=== PATIENT | male | born 1990 | race Caucasian/White ===

== ENCOUNTER 2017-03-13 16:30 | Inpatient (IN) | payer SELFPAY ==
[~2017-03-13] VITALS: Ht 188 cm; Wt 105.7 kg
[2017-03-13] VITALS (7 sets, daily range): BP systolic 105–116; BP diastolic 41–70
--- NOTE | 2017-03-13 16:32 | NUR ---
PT BIB GIRLFRIEND TO ER BED 14. PT IS C/O HEROIN WIDRAWAL, GENERALIZED WEAKNESS AND TREMORS. STATES LAST HEROIN USE WAS 3 DAYS AGO. GOWNED AND PLACED ON MONITOR. TACHY AND HYPERTENSIVE. AWAITING MD JOSEPH.
--- NOTE | 2017-03-13 16:50 | NUR ---
DR HARPER AT BEDSIDE FOR EVAL.
[2017-03-13] MEDS ORDERED: IV NS 0.9% 1,000 ML BAG IV ONE (17:00)
[2017-03-13] MEDS ORDERED: ONDANSETRON HCL/PF 4 MG/2 ML VIAL IVP ONE (17:00)
[2017-03-13] MEDS ORDERED: LORAZEPAM INJ 2 MG/ML VIAL IV ONE (17:00)
--- NOTE | 2017-03-13 17:03 | NUR ---
SIGNAL WIRER AT BEDSIDE FOR BLOOD DRAW.
--- NOTE | 2017-03-13 17:03 | NUR ---
Cristhian mei in ED - 03/13/17 at 1759 by JABIER BLOCK MAKING MACHINE OPERATOR AT BEDSIDE FOR CHEST XRAY.
[2017-03-13 17:11] LABS: HEMATOCRIT 35 % (39-51); HEMOGLOBIN 12.3 g/dL (13.5-17.5); MEAN CORPUSCULAR HEMOGLOBIN 27 PG (26.0-33.0); MEAN CORPUSCULAR HGB CONC 36 g/dl (31.0-36.0); MEAN CORPUSCULAR VOLUME 75 fL (80-96); RDW COEFFICIENT OF VARIATION 14.5 (11.5-15.0); RED BLOOD CELL COUNT(AUTO) 4.61 MIL/uL (4.5-6.0)
[2017-03-13] MEDS ORDERED: ONDANSETRON HCL/PF 4 MG/2 ML VIAL ONE (17:17)
[2017-03-13] MEDS ORDERED: LORAZEPAM INJ 2 MG/ML VIAL ONE (17:17)
[2017-03-13 17:29] LABS: ALBUMIN 1.6 g/dL (3.4-5.0); BILIRUBIN,DIRECT 5.4 mg/dL (0.0-0.2); BILIRUBIN,TOTAL 6.4 mg/dL (0.2-1.0); CALCIUM, SERUM 8.1 mg/dL (8.5-10.1); CREATININE 2.4 mg/dL (0.6-1.3); POTASSIUM 3.8 mmol/L (3.5-5.1); TOTAL PROTEIN, SERUM 6.8 g/dL (6.4-8.2)
[2017-03-13 17:38] LABS: INR 1.48 (0.87-1.13); PROTHROMBIN TIME 15.4 SECS (9.5-12.7)
[2017-03-13 17:45] LABS: WHITE BLOOD COUNT (AUTO) 45.2 K/uL (4.3-11.0)
--- NOTE | 2017-03-13 17:58 | NUR ---
RADIOLOGY AT BEDSIDE FOR CHEST XRAY.
[2017-03-13] MEDS ORDERED: IV NS 0.9% 250 ML IV ONE (18:00)
[2017-03-13] MEDS ORDERED: PIPERACILLIN /TAZOBACTAM 3.375 G in IV D5W 50 ML IV ONE (18:00)
[2017-03-13] MEDS ORDERED: IV NS 0.9% 1,000 ML IV ONE ×2 (18:00)
[2017-03-13] MEDS ORDERED: VANCOMYCIN 1 GM in IV D5W 250 ML IV ONE (18:00)
[2017-03-13] MEDS ORDERED: IBUPROFEN 200 MG TABLET ONE (18:13)
[2017-03-13] MEDS ORDERED: IBUPROFEN 400 MG TABLET PO ONE (18:30)
[2017-03-13 18:56] LABS: BAND % (MANUAL) 12 % (0.0-5.0); LYMPHOCYTES % (MANUAL) 4 % (16-48); MONOCYTES % (MANUAL) 12 % (0-11.0); NEUTROPHILS % (MANUAL) 72 (42-76)
[2017-03-13 19:12] LABS: APPEARANCE,URINE Slightly Cloudy (CLEAR); BILIRUBIN,URINE MODERATE (NEGATIVE); BLOOD, URINE Moderate Ery/uL (NEGATIVE); COLOR,URINE Dark (YELLOW); KETONES,URINE Negative (NEGATIVE); LEUKOCYTE ESTERASE ,URINE Negative (NEGATIVE); NITRITE, URINE Negative (NEGATIVE); PH,URINE 5.5 (5.0-8.0); PROTEIN,URINE 30 mg/dl (NEGATIVE); UGLUCOSE Negative (NEGATIVE)
[2017-03-13 19:37] LABS: BACTERIA,URINE Few /HPF (None Seen); WBC,URINE 0-2 /HPF (0-3)
[2017-03-13 19:38] LABS: SQUAMOUS EPITHELIAL CELL,UR Few /HPF (None Seen)
[2017-03-13] MEDS ORDERED: ONDANSETRON HCL/PF 4 MG/2 ML VIAL IVP PRN (20:00)
[2017-03-13] MEDS ORDERED: ZOLPIDEM TARTRATE 5 MG TABLET PO PRN (20:00)
[2017-03-13] MEDS ORDERED: Z GUARD REMEDY 2 OZ OINT TP PRN (20:00)
[2017-03-13] MEDS ORDERED: ENOXAPARIN SODIUM 40 MG/0.4 ML DISP.SYRIN SQ SCH (20:00)
[2017-03-13] MEDS ORDERED: HYDROCODONE/APAP 5/325MG 1 EACH TABLET PO PRN (20:00)
--- NOTE | 2017-03-13 20:31 | NUR ---
REPORT CALLED TO HORACE. PT TRANSFERED TO ICU. CONDITION: GUARDED
[2017-03-13] MEDS ORDERED: ENOXAPARIN SODIUM 40 MG/0.4 ML DISP.SYRIN SQ ONE (20:36)
--- NOTE | 2017-03-13 21:00 | NUR ---
received pt from ER, s/p drug overdose, lethargic, follows simple commands, ST, on 10L simple mask, sat 92%, diaper on, v/s stable, no pain, pt cleaned and changed, vanco, Zosyn given in ER.
[2017-03-13 21:04] LABS: ABG BASE EXCESS -2.2 mmol/L; ABG OXYGEN SATURATION 93.1 % (92.0-98.5); ABG PCO2 27.8 mmHg (35.0-45.0); ABG PH 7.481 (7.350-7.450); ABG PO2 69.7 mmHg (75.0-100.0); AaDO2 212.3 mmHg; COHb 0.6 % (0.5-1.5); MetHb 0.2 % (0.0-1.5); O2Hb 92.4 % (94.0-97.0); SITE, ABG Right Radial; VENT MODE, BG SM
[2017-03-13] MEDS: IV NS 0.9% 1,000 ML IV PRN (22:04)
[2017-03-13] MEDS ORDERED: PIPERACILLIN /TAZOBACTAM 2.25 G VIAL IV ONE (22:54)
[2017-03-13] MEDS: PIPERACILLIN /TAZOBACTAM 2.25 G in IV D5W 50 ML IV SCH (23:23)
[2017-03-14] VITALS (40 sets, daily range): BP systolic 87–167; BP diastolic 45–98
--- NOTE | 2017-03-14 | NUR ---
pt is resting in the bed, lethargic, follows simple commands, ABGs normal, ST, on simple mask at 10L, sat 93%, lungs congested, no edema, BL legs cellulitis, f/c inserted, DELMER new midline, v/s stable, no pain, pt turned and repositioned q2hrs.
[2017-03-14] MEDS ORDERED: PIPERACILLIN /TAZOBACTAM 2.25 G VIAL IV ONE (04:38)
--- NOTE | 2017-03-14 04:43 | NUR ---
pt is resting in the bed, lethargic, ST, on non rebreather mask at 15L, sat well, v/s stable, no pain, pt cleaned, changed and repositioned q2hrs.
[2017-03-14] MEDS: PIPERACILLIN /TAZOBACTAM 2.25 G in IV D5W 50 ML IV SCH (05:02)
[2017-03-14 05:44] LABS: HEMATOCRIT 31 % (39-51); HEMOGLOBIN 10.3 g/dL (13.5-17.5); MEAN CORPUSCULAR HEMOGLOBIN 26 PG (26.0-33.0); MEAN CORPUSCULAR HGB CONC 34 g/dl (31.0-36.0); MEAN CORPUSCULAR VOLUME 78 fL (80-96); RDW COEFFICIENT OF VARIATION 15.7 (11.5-15.0); RED BLOOD CELL COUNT(AUTO) 3.92 MIL/uL (4.5-6.0)
[2017-03-14 05:46] LABS: ALANINE AMINOTRANSFERASE 63 U/L (12-78); ALKALINE PHOSPHATASE 224 U/L (46-116); ASPARTATE AMINOTRANSFERASE 75 U/L (15-37); BILIRUBIN,TOTAL 5.2 mg/dL (0.2-1.0); CALCIUM, SERUM 7.8 mg/dL (8.5-10.1); CARBON DIOXIDE 26 mmol/L (21-32); CHLORIDE 99 mmol/L (98-107); GLUCOSE 138 mg/dL (74-106); MAGNESIUM 2.4 mg/dL (1.8-2.4); PHOSPHORUS 4.5 mg/dL (2.5-4.9); POTASSIUM 2.9 mmol/L (3.5-5.1); SODIUM SERUM 135 mmol/L (136-145); TOTAL PROTEIN, SERUM 5.7 g/dL (6.4-8.2)
[2017-03-14 05:52] LABS: WHITE BLOOD COUNT (AUTO) 36.1 K/uL (4.3-11.0)
[2017-03-14 05:57] LABS: CHOLESTEROL 131 mg/dL (<200); HDL CHOLESTEROL < 10 mg/dL (40-60); LDL 42 mg/dL (0-99); PLATELET COUNT (AUTO) 17 /CMM (150-450); THYROID STIMULATING HORMONE 0.183 uIU/mL (0.358-3.74); TRIGLYCERIDES 392 mg/dL (30-150)
[2017-03-14 05:59] LABS: ALBUMIN 1.4 g/dL (3.4-5.0); UREA NITROGEN, BLOOD 84 mg/dL (7-18)
--- NOTE | 2017-03-14 06:38 | NUR ---
platelets 17 and SBP 160-170 Dr Mosley notified, no orders.
--- NOTE | 2017-03-14 07:10 | NUR ---
RN INITIAL NOTES RECEIVED PT AWAKE, A/OX1-2. ON NON-REBREATHER AT 15LPM. HOB ELEVATED. 02 SAT 90%. DENIES ANY PAIN. DELMER MIDLINE IN PLACE. ON NS AT 100ML/HR. FC IN PLACE. PT CLEAN AND DRY. PT COMFORTABLE. CALL LIGHT WITHIN REACH. WILL CLOSELY MONITOR.
[2017-03-14] MEDS ORDERED: FEE PK DOSING 1 MIN EA MC ONE (07:31)
[2017-03-14] MEDS: PANTOPRAZOLE 40 MG VIAL IV SCH (08:14)
[2017-03-14] MEDS: IV NS 0.9% 1,000 ML IV PRN ×2 (08:46→16:02)
[2017-03-14] MEDS: VANCOMYCIN 1 GM in IV D5W 250 ML IV SCH ×2 (09:27→21:31)
[2017-03-14] MEDS ORDERED: POTASSIUM CHLORIDE 20 MEQ TAB.PRT.SR PO ONE (09:30)
[2017-03-14] MEDS ORDERED: PROPOFOL 100 ML IV PRN (10:00)
[2017-03-14] MEDS ORDERED: POTASSIUM CHLORIDE 10 MEQ TABLET.SA PO ONE (10:00)
--- NOTE | 2017-03-14 10:00 | NUR ---
RT NOTE. PT. 26 Y OLD MALE IN ICU OD AND X3 RT AT THE BEDSIDE, ASSIST ER FOR INTUBATION ETT # 7.5 AT 25 CM LIPLINE. GOOD COLOR EXCHANGED NOTED. PLACED ON [facility]. VENT WITH NOTED SETTINGS, ALARMS ARE SET, VENT PLUGGED ON RED OUTLET. AND AMBU BAG REMAIN AT TH BEDSIDE. CONTINUE FOR CARE AND MONITORING Addendum: 03/14/17 at 1851 by LUIS SMITH RT Amended: Links added.
--- NOTE | 2017-03-14 10:00 | NUR ---
RN NOTES 0930 SEEN AND EXAMINED BY DR. BARRAGAN. AWARE OF H&P AND CURRENT MEDS. AWARE OF LAB VALUES: WBC 36.1, PLATELET 17, POTASSIUM 2.9, WITH REPLACEMENT ORDER. BUN 84, CREA 2.0. PT AWAKE, A/OX1 WITH CONFUSION. PT TACHYCARDIC, HR 130S AND TACHYPNEIC RR 40S. ON NON-REBREATHER AT 15LPM. PT TAKES OFF NON-REBREATHER FREQUENTLY, 02 SAT GOES DOWN TO 70S-80S. HOB ELEVATED. MD ORDER PT FOR INTUBATION. CALLED ER MD. WILL PREPARE PROPER EQUIPMENT. 0950 PT INTUBATED. ETT 7.5/25CM ON THE LIP. CONNECTED TO VENT. WILL CLOSELY MONITOR. OG PLACED ORDERED. BILATERAL WRIST RESTRAINTS ON. WILL MONITOR FOR ANY CIRCULATORY IMPAIRMENT. WILL START DIPRIVAN NEEDED. AWAITING FOR STAT CXR. WILL MONITOR.
[2017-03-14] MEDS ORDERED: SUCCINYLCHOLINE CHLORIDE 20 MG/ML VIAL IV ONE (11:24)
[2017-03-14] MEDS ORDERED: ETOMIDATE 2 MG/ML VIAL IV ONE (11:24)
[2017-03-14] MEDS: PIPERACILLIN /TAZOBACTAM 3.375 G in IV D5W 50 ML IV SCH ×2 (11:27→17:26)
[2017-03-14] MEDS: PROPOFOL 100 ML IV PRN ×6 (11:51→22:39)
[2017-03-14 12:11] LABS: ABG BASE EXCESS -7.4 mmol/L; ABG OXYGEN SATURATION 97.1 % (92.0-98.5); ABG PCO2 36.7 mmHg (35.0-45.0); ABG PH 7.311 (7.350-7.450); ABG PO2 115.7 mmHg (75.0-100.0); AaDO2 560.6 mmHg; COHb 0.3 % (0.5-1.5); MetHb 0.6 % (0.0-1.5); O2Hb 96.2 % (94.0-97.0); PEEP,BG 5 cm H2O; SITE, ABG Right Brachial; VT, ABG 600 mL
[2017-03-14 12:20] LABS: BAND % (MANUAL) 5 % (0.0-5.0); LYMPHOCYTES % (MANUAL) 4 % (16-48); NEUTROPHILS % (MANUAL) 90 (42-76)
--- NOTE | 2017-03-14 12:20 | NUR ---
RN NOTES ABG RESULT RELAYED TO DR. BARRAGAN. ORDERED CHANGE VENT SETTINGS TO PEEP +8 AND TITRATE FI02. WILL CLOSELY MONITOR.
[2017-03-14 12:21] LABS: MONOCYTES % (MANUAL) 1 % (0-11.0)
--- NOTE | 2017-03-14 14:00 | NUR ---
RN NOTES SEEN AND EXAMINED BY DR. GIFFORD. AWARE OF CURRENT LAB VALUES AND IMAGING STUDIES. MD ORDERED BMP AT 1500. POTASSIUM LEVEL 2.9, REPLACED WITH POTASSIUM 50MEQ. WILL NOTIFY MD WITH RESULT.
[2017-03-14] MEDS ORDERED: IV NS 0.9% 1,000 ML BAG IV STA (14:57)
--- NOTE | 2017-03-14 14:57 | NUR ---
RN NOTES DR. BARRAGAN IN THE UNIT. PT SBP ON LOW 90S. PT ON DIPRIVAN. ON NS AT 100ML/HR. PER MD, GIVE NS 500ML BOLUS X1. WILL MONITOR FOR EFFECTIVENESS
--- NOTE | 2017-03-14 15:39 | NUR ---
RN NOTES SEEN AND EXAMINED BY DR. CAN. AWARE OF LAB VALUES: WBC 36.1. AFEBRILE. ON IV ATB. HGB 10.3, HCT 31, POTASSIUM 2.9, REPLACED WITH POTASSIUM 50MEQ TOTAL. BMP RECHECK DONE AT 1500. AWAITING FOR RESULT. BUN 84, CREA 2.0. ON THE CASE. AWARE PT INTUBATED, ON VENT. NO RESPIRATORY DISTRESS NOTED. PT SEDATED, ON DIPRIVAN. MD ORDERED LABS IN AM. WILL MONITOR.
[2017-03-14 16:04] LABS: CALCIUM, SERUM 7.8 mg/dL (8.5-10.1); CREATININE 2.3 mg/dL (0.6-1.3); POTASSIUM 3.5 mmol/L (3.5-5.1)
[2017-03-14] MEDS ORDERED: NOREPINEPHRINE 16 MG in IV D5W 500 ML IV PRN (18:00)
[2017-03-14] MEDS: LEVOFLOXACIN 500 MG /D5W 100ML 500 MG in PREMIX 1 EA IV SCH (18:15)
--- NOTE | 2017-03-14 18:23 | NUR ---
RN CLOSING NOTES PT INTUBATED, ON VENT. NO RESPIRATORY DISTRESS NOTED. NO SOB NOTED. NO SIGNS OF PAIN NOTED. PT SEDATED, ON DIPRIVAN. TITRATED ACCORDINGLY. OG IN PLACE, CLAMPED. MIDLINE IN PLACE. TOLERATING IVF WELL. FC IN PLACE. NO HEMATURIA NOTED. KEPT CLEAN AND DRY. REPOSITIONED Q2. KEPT BLE ELEVATED. WILL ENDORSE FOR CONTINUITY OF CARE.
[2017-03-14] MEDS ORDERED: ENOXAPARIN SODIUM 40 MG/0.4 ML DISP.SYRIN SQ SCH (21:00)
--- NOTE | 2017-03-14 22:30 | NUR ---
agricultural engineering technologist. initial assessment. received the pt rest on the bed. orally intubated. sedated with diprivan. ETT 7.5,LIP 25CM,AC 12, TV 600,FIO2 80%, PEEP 8. SAT 95%. ANGULAR DEVELOPER SHOWING S TACH. IV LT UPPER ARM MID LINE, RT SHOULDER 20G,OGT CLAMPED. DIPRIVAN 75ML/H,NS 100ML/H, PAYTON SOFT WRIST RESTRAINT CHECKED AND RELEASED. NO INJURY OR REDNESS NOTED. HOB ELEVATED. NPO. AFEBRILE. FC PATENT. TURN AND REPOSITION Q2H. WILL CONTINUE TO MONITOR VITALS.
--- NOTE | 2017-03-14 23:16 | NUR ---
EMPLOYEE WELLNESS/FITNESS COORDINATOR. REPORT GIVEN TO LISETH PHIPPS.
--- NOTE | 2017-03-14 23:20 | NUR ---
FURNACE CARETAKER NOTE RECEIVED REPORT FROM MOISE WOOD. PATIENT IS INTUBATED, ETT 7.5, LIPLINE 25, ON MECH VENT AT AC 12, TV 600, FIO2 80%, PEEP 8. PATIENT IS TACHYPNEIC IN THE 30s. ST ON MONITOR IN THE 130s. BP STABLE. OGT CLAMPED. PATIENT SEDATED WITH DIPRIVAN AT 85 mcg/kg/min. IVF ORDERED OF NS AT 100cc/hr. DELMER MIDLINE AND R SHOULDER 20G INTACT AND PATENT. F/C INTACT AND DRAINING WITH CLOUDY, YELLOW URINE WITH SEDIMENTS. WITH BILATERAL SOFT WRIST RESTRAINTS IN PLACE, CHECKED FOR CIRCULATION AND SKIN INTEGRITY. REPOSITIONED FOR COMFORT AND SAFETY. ON CLOSE MONITORING.
[2017-03-15] VITALS (58 sets, daily range): BP systolic 81–122; BP diastolic 35–63
[2017-03-15] MEDS: PIPERACILLIN /TAZOBACTAM 3.375 G in IV D5W 50 ML IV SCH ×4 (00:37→17:13)
[2017-03-15] MEDS: PROPOFOL 100 ML IV PRN ×10 (00:46→21:09)
[2017-03-15] MEDS: IV NS 0.9% 1,000 ML IV PRN ×3 (05:10→18:10)
[2017-03-15 06:22] LABS: HEMATOCRIT 29 % (39-51); HEMOGLOBIN 9.7 g/dL (13.5-17.5); MEAN CORPUSCULAR HEMOGLOBIN 26 PG (26.0-33.0); MEAN CORPUSCULAR HGB CONC 33 g/dl (31.0-36.0); MEAN CORPUSCULAR VOLUME 78 fL (80-96); RDW COEFFICIENT OF VARIATION 16.5 (11.5-15.0); RED BLOOD CELL COUNT(AUTO) 3.75 MIL/uL (4.5-6.0)
[2017-03-15 06:26] LABS: PLATELET COUNT (AUTO) 19 /CMM (150-450); WHITE BLOOD COUNT (AUTO) 31.5 K/uL (4.3-11.0)
[2017-03-15 06:29] LABS: INR 1.14 (0.87-1.13); PROTHROMBIN TIME 11.9 SECS (9.5-12.7)
--- NOTE | 2017-03-15 06:31 | NUR ---
MOLDED GOODS CONTROLS OPERATOR NOTE RECEIVED CALL FROM LAB. PATIENT'S WBC IS 31.5 AND PLATELET 19. VALUES TRENDING. CN MADE AWARE. WILL ENDORSE ACCORDINGLY.
[2017-03-15 06:40] LABS: CALCIUM, SERUM 7.9 mg/dL (8.5-10.1); CREATININE 2.5 mg/dL (0.6-1.3); MAGNESIUM 2.7 mg/dL (1.8-2.4); PHOSPHORUS 4.5 mg/dL (2.5-4.9)
--- NOTE | 2017-03-15 06:45 | NUR ---
BASTING PULLER CLOSING NOTES PATIENT WITH NO DISTRESS OBSERVED OVERNIGHT. DIPRIVAN AT 85 mcg/kg/min, PATIENT IS SEDATED, MONITORED CLOSELY, VS STABLE AT THIS TIME. ETT IN PLACE. AIRWAY SUCTIONED NEEDED. REMAINS ST WITH HR OF 122. DELMER MIDLINE INTACT AND PATENT, IVF ORDERED. B SOFT WRIST RESTRAINTS IN PLACE AT ALL TIMES, CIRCULATION AND SKIN INTEGRITY ENSURED. OGT IN PLACE, CLAMPED. F/C INTACT AND DRAINING WITH CLOUDY, ADRIÁN COLORED URINE. PATIENT TURNED AND REPOSITIONED. SAFETY AND COMFORT ENSURED. WILL ENDORSE ACCORDINGLY FOR CONTINUITY OF CARE.
[2017-03-15 06:47] LABS: POTASSIUM 3.7 mmol/L (3.5-5.1)
--- NOTE | 2017-03-15 07:10 | NUR ---
RN INITIAL NOTES RECEIVED PT ETT IN PLACE. ON VENT. NO RESPIRATORY DISTRESS NOTED. HOB ELEVATED. NO SIGNS OF PAIN NOTED. OG IN PLACE, CLAMPED. DELMER MIDLINE IN PLACE. PT SEDATED. ON DIPRIVAN AT 85MCG/KG/MIN. WILL TITRATE ACCORDINGLY. ON NS AT 100ML/HR. FC IN PLACE. NO HEMATURIA NOTED. BILATERAL SOFT WRIST RESTRAINTS ON. NO CIRCULATORY IMPAIRMENT NOTED. PT FOR WEANING TRIALS TODAY. BLE ELEVATED. WILL MONITOR.
[2017-03-15] MEDS: VANCOMYCIN 1 GM in IV D5W 250 ML IV SCH (08:00)
[2017-03-15] MEDS: PANTOPRAZOLE 40 MG VIAL IV SCH (08:07)
--- NOTE | 2017-03-15 08:40 | NUR ---
RT PATIENT REC'D ORALLY INTUBATED ON [facility] VENT WITH SETTINGS SET BY . VENT ALARMS CHECKED + AUDIBLE. CUFF PRESSURE CHECKED CUT OFF MACHINE HELPER. SUCTIONED WITH MOD AMT PALE SEMITHICK SECRETIONS. B/S DIM. HALL BAG AT HOB. Addendum: 03/15/17 at 1302 by FATOUMATA JOHNSON RT Amended: Links added.
[2017-03-15] MEDS: LORAZEPAM INJ 2 MG/ML VIAL IV SCH ×3 (08:48→18:30)
--- NOTE | 2017-03-15 08:56 | NUR ---
RN NOTES VANCO DOSE FOR 0800 HELD. VANCO LEVEL 27. LUZ (PHARMACIST) AWARE.
--- NOTE | 2017-03-15 09:00 | NUR ---
RN NOTES 0845 PT ON SEDATION VACATION. PT ABLE TO OPEN EYES SPONTANEOUSLY. MOVES LEFT HAND. PLACED ON SIMV MODE ORDERED. WILL CLOSELY MONITOR 0855 PT TACHYPNEIC, RR 40-50S. UNCONTROLLED COUGHING NOTED. PT MOVES LEFT HAND, TRYING TO PULL OUT ETT. DR. BARRAGAN IN THE UNIT AWARE. PLACED BACK ON AC MODE. WILL CLOSELY MONITOR. Addendum: 03/15/17 at 0902 by INDIRA JOYCE RN WRONG PT DOCUMENTATION. PLS DISREGARD NOTE.
--- NOTE | 2017-03-15 09:05 | NUR ---
RN NOTES 0900 PT ON DIPRIVAN AT 60MCG/KG/MIN. DIPRIVAN TITRATING FOR SEDATION VACATION. ABG DRAWN, AWAITING FOR RESULT. SEEN AND EXAMINED BY DR. BARRAGAN. PT LOOKS AGITATED. PT TACHYCARDIC, HR 120S, PT TACHYPNEIC, RR 30S. WILL INCREASE DIPRIVAN ACCORDINGLY. WILL NOTIFY MD FOR ABG RESULT. WILL CLOSELY MONITOR.
[2017-03-15 09:26] LABS: ABG BASE EXCESS -6.8 mmol/L; ABG OXYGEN SATURATION 92.8 % (92.0-98.5); ABG PCO2 36.2 mmHg (35.0-45.0); ABG PH 7.324 (7.350-7.450); ABG PO2 72.5 mmHg (75.0-100.0); AaDO2 459.9 mmHg; COHb 0.2 % (0.5-1.5); MetHb 0.6 % (0.0-1.5); O2Hb 92.1 % (94.0-97.0); PEEP,BG 8 cm H2O; SITE, ABG Left Radial
--- NOTE | 2017-03-15 09:30 | NUR ---
RN NOTES SEEN AND EXAMINED BY DR GIFFORD. AWARE OF CURRENT LAB VALUES. NO ORDER MADE AT THIS TIME.
--- NOTE | 2017-03-15 11:15 | NUR ---
PER DR YUNG LIPSCOMB PEEP INCREASED TO 12 Addendum: 03/15/17 at 1303 by FATOUMATA JOHNSON RT Amended: Links added.
[2017-03-15 12:01] LABS: BAND % (MANUAL) 3 % (0.0-5.0); EOSINOPHILS % (MANUAL) 1 % (0-4); LYMPHOCYTES % (MANUAL) 8 % (16-48); MONOCYTES % (MANUAL) 3 % (0-11.0); NEUTROPHILS % (MANUAL) 85 (42-76)
--- NOTE | 2017-03-15 16:00 | NUR ---
RN NOTES SEEN AND EXAMINED BY SUMMER NORTON DNP. AWARE OF CURRENT LAB VALUES: WBC 31.5, HGB 9.7, CREA 29, PLATELET 19. NO SIGNS OF ACTIVE BLEEDING NOTED. BUN 93, CREA 2.5. ON IVF: NS AT 100ML/HR. AWARE OF CXR RESULT. PT REMAINS INTUBATED, TOLERATING VENT. PEEP CHANGED AFTER ABG RESULT. NO ORDER MADE AT THIS TIME.
[2017-03-15] MEDS: LACTOBACILLUS RHAMNOSUS GG 1 EACH CAP.SPRINK PO SCH (16:12)
--- NOTE | 2017-03-15 17:22 | NUR ---
RN NOTES CALLED SUMMER NORTON DNP REGARDING PT'S SBP BET 80-90S. PT HAS ORDER FOR LEVO TO KEEP SBP >90. PT NEEDS PICC LINE JUST IN CASE LEVO WILL BE STARTED. PT ON IVF: NS AT 100ML/HR. PT HAS DELMER MIDLINE. PER SUMMER, GIVE NS 1L BOLUS THEN RESUME NS AT 100ML/HR. WILL CLOSELY MONITOR BP.
[2017-03-15] MEDS: LEVOFLOXACIN 500 MG /D5W 100ML 500 MG in PREMIX 1 EA IV SCH (18:30)
--- NOTE | 2017-03-15 18:40 | NUR ---
RN CLOSING NOTES PT INTUBATED, ON VENT. NO SOB NOTED. NO SIGNS OF PAIN NOTED. PT SEDATED, ON DIPRIVAN. OG IN PLACE, CLAMPED. MIDLINE IN PLACE. GIVEN NS 1L BOLUSX1. SBP ON 90S. TOLERATING IVF WELL. BP CLOSELY MONITOR. FC IN PLACE. NO HEMATURIA NOTED. KEPT CLEAN AND DRY. REPOSITIONED Q2. KEPT BLE ELEVATED. WILL ENDORSE FOR CONTINUITY OF CARE.
--- NOTE | 2017-03-15 18:48 | NUR ---
RN NOTES CALLED SUMMER NORTON DNP REGARDING LATEST BP 87/44. GIVEN NS 1L BOLUS. RESUMES NS AT 100ML/HR. PT NEEDS PICC LINE INSERTION. AWAITING CALL BACK.
--- NOTE | 2017-03-15 19:16 | NUR ---
COLD MILL INSPECTOR. INITIAL ASSESSMENT. RECEIVED THE PT REST ON THE BED. ORALLY INTUBATED, ETT 7.5, LIP 25CMAC 12,TV 800, FIO2 80%, PEEP 12.SAT 94%. DETENTION WORKER SHOWING S TACH. PAYTON SOFT WRIST RESTRAINT CHECKED AND RELEASED. NO INJURY OR REDNESS NOTED. OGT INTACT. CLAMPED. IV RT SHOULDER 20G, LT UPPER ARM MID LINE. DIPRIVAN 50MCG/KG/MIN,NS 100ML/H,FC PATENT, HOB ELEVATED. TURN AND REPOSITION Q2H. WILL CONTINUE TO MONITOR VITALS.
--- NOTE | 2017-03-15 20:21 | NUR ---
PT RECEIVED INTUBATED WITH 7.5 ETT SECURED AT 25CM AT THE LIP. PT TOLERATING VENT SETTINGS. SX'D FOR SML AMT OF THICK PALE SECRETIONS. VENT ALARMS SET AND AUDIBLE. AMBU BAG AT BEDSIDE. VENT PLUGGED INTO RED OUTLET. WILL CONTINUE TO MONITOR. Addendum: 03/15/17 at 2023 by LY MARIANO RT Amended: Links added.
[2017-03-15] MEDS ORDERED: VANCOMYCIN 1 GM in IV D5W 250 ML IV SCH (21:00)
[2017-03-15 22:14] LABS: ABG OXYGEN SATURATION 82.8 % (92.0-98.5); ABG PCO2 42.1 mmHg (35.0-45.0); ABG PH 7.261 (7.350-7.450); ABG PO2 56.3 mmHg (75.0-100.0); AaDO2 469.9 mmHg; COHb 0.3 % (0.5-1.5); MetHb 0.8 % (0.0-1.5); O2Hb 81.9 % (94.0-97.0); PEEP,BG 12 cm H2O; SITE, ABG Left Radial
--- NOTE | 2017-03-15 22:45 | NUR ---
VANCOMYCIN LEVEL STILL PENDING.
--- NOTE | 2017-03-15 23:04 | NUR ---
SUMMER INTERNSHIP.SUMMER NORTON PLACED CENTRAL LINE . DURING PROCEDURE NO COMPLICATION NOTED. WILL CONTINUE TO MONITOR.
--- NOTE | 2017-03-15 23:47 | NUR ---
DIGITAL IMAGING TECHNICIAN. [facility] LEVEL 21. CALLED FRAMER RALPH SHE TOLD HOLD AND CHECK IN AM [facility].
[2017-03-16] VITALS (75 sets, daily range): BP systolic 65–115; BP diastolic 30–60
[2017-03-16] MEDS: PROPOFOL 100 ML IV PRN ×5 (00:03→11:26)
--- NOTE | 2017-03-16 00:09 | NUR ---
PEEP INCREASED TO [address] NORTON. RN NOTIFIED.
[2017-03-16] MEDS ORDERED: MIDAZOLAM HCL 100 MG in IV NS 0.9% 80 ML IV PRN (00:30)
[2017-03-16] MEDS ORDERED: FENTANYL CITRATE IV 1,250 MCG in IV NS 0.9% 225 ML IV PRN (00:30)
[2017-03-16] MEDS: PIPERACILLIN /TAZOBACTAM 3.375 G in IV D5W 50 ML IV SCH ×3 (00:40→12:07)
--- NOTE | 2017-03-16 00:49 | NUR ---
@0008 PEEP INCREASED TO [address] MONTALVO RN NOTIFIED. Addendum: 03/16/17 at 0049 by LY MARIANO RT Amended: Links added.
--- NOTE | 2017-03-16 00:59 | NUR ---
PEEP DECREASED BACK TO 12 DO TO LOW BP. RN NOTIFIED. Addendum: 03/16/17 at 0100 by LY MARIANO RT Amended: Links added.
--- NOTE | 2017-03-16 01:24 | NUR ---
HUMAN SERVICES CASE MANAGER. SUMMER ORDER STAT ABG. VENT SETTING CHANGED. RATE 20,PEEP 14. 30MINUTES LATER PT BLOOD PRESSURE AND HEART RATE WENT DOWN. LEVOPHED STARTED, PEEP CHANGED TO 12. WILL CONTINUE TO MONITOR. SUMMER MADE AWARE.
[2017-03-16] MEDS: LORAZEPAM INJ 2 MG/ML VIAL IV SCH ×3 (01:41→13:14)
[2017-03-16] MEDS ORDERED: IV NS 0.9% 250 ML IV PRN (02:30)
[2017-03-16] MEDS: IV NS 0.9% 1,000 ML IV PRN ×2 (03:54→16:44)
[2017-03-16 05:26] LABS: HEMATOCRIT 26 % (39-51); HEMOGLOBIN 9.2 g/dL (13.5-17.5); MEAN CORPUSCULAR HEMOGLOBIN 27 PG (26.0-33.0); MEAN CORPUSCULAR HGB CONC 35 g/dl (31.0-36.0); MEAN CORPUSCULAR VOLUME 77 fL (80-96); RDW COEFFICIENT OF VARIATION 16.4 (11.5-15.0); RED BLOOD CELL COUNT(AUTO) 3.42 MIL/uL (4.5-6.0)
[2017-03-16] MEDS ORDERED: PHENYLEPHRINE 10 MG/ML VIAL ONE (05:41)
[2017-03-16 05:46] LABS: CALCIUM, SERUM 7.7 mg/dL (8.5-10.1); MAGNESIUM 3.2 mg/dL (1.8-2.4); POTASSIUM 5.1 mmol/L (3.5-5.1)
[2017-03-16 05:47] LABS: PLATELET COUNT (AUTO) 29 /CMM (150-450); WHITE BLOOD COUNT (AUTO) 52.9 K/uL (4.3-11.0)
[2017-03-16] MEDS: PHENYLEPHRINE 80 MG in IV NS 0.9% 250 ML IV PRN ×3 (05:56→18:34)
--- NOTE | 2017-03-16 05:59 | NUR ---
DECREASED FIO2 TO 90%. RN NOTIFIED. Addendum: 03/16/17 at 0559 by LY MARIANO RT Amended: Links added.
[2017-03-16 06:16] LABS: PHOSPHORUS 8.4 mg/dL (2.5-4.9)
--- NOTE | 2017-03-16 07:48 | NUR ---
PATIENT REC'D ORALLY INTUBATED ON [facility] VENT WITH SETTINGS SET BY . VENT ALARMS CHECKED + AUDIBLE. SX'D WITH SMALL AMT PALE SECRETIONS. FIO2 TITRATED TO 80% PATIENT IN CRITICAL CONDITION. AMBU BAG AT HOB Addendum: 03/16/17 at 0749 by FATOUMATA JOHNSON RT Amended: Links added.
--- NOTE | 2017-03-16 08:00 | NUR ---
PATIENT SEEN, ORALLY INTUBATED TO FULL VENT SUPPORT. AC 20 , TV 600, FIO2 90%, PEEP 12. DIPRIVAN DRIP ONGOING/HR. AT 50 MCG/KG/MIN. FENTANYL DRIP AT 50 MCG/HR. NEOSYNEPRINE DRIP AT 100 MCG/MIN. ST 120'S ON MONITOR.
[2017-03-16 08:05] LABS: BAND % (MANUAL) 3 % (0.0-5.0); LYMPHOCYTES % (MANUAL) 16 % (16-48); MONOCYTES % (MANUAL) 7 % (0-11.0); NEUTROPHILS % (MANUAL) 74 (42-76)
[2017-03-16] MEDS: LACTOBACILLUS RHAMNOSUS GG 1 EACH CAP.SPRINK PO SCH ×2 (08:50→16:59)
[2017-03-16] MEDS: PANTOPRAZOLE 40 MG VIAL IV SCH (08:50)
--- NOTE | 2017-03-16 09:00 | NUR ---
ONGOING TITRATION OF NEOSYNEPHRINE TO KEEP SBP >90. UP TO 200 MCG/MIN AT THIS TIME. PATIENT MOTHER AND SISTER AT BEDSIDE. SPOKE TO THEM REGARDING PATIENT STATUS.
--- NOTE | 2017-03-16 09:15 | NUR ---
DR. BARRAGAN AT BEDSIDE. MD MADE AWARE OF ABG RESULT. VENT SETTINGS CHANGED. TV TO 650 BY RT. MD GAVE ORDERS TO START PATIENT ON LEVOPHED AND VERSED DRIP TO DECREASED RR TO <30. TITRATE DOWN PROPOFOL TO D/C ONCE FENTANYL AND VERSED ARE UP. MD SPOKE TO PATIENT MOTHER REGARDING PATIENT CONDITION AND PLAN OF CARE.
[2017-03-16 09:22] LABS: ABG BASE EXCESS -10.3 mmol/L; ABG OXYGEN SATURATION 96.7 % (92.0-98.5); ABG PCO2 35.2 mmHg (35.0-45.0); ABG PH 7.268 (7.350-7.450); ABG PO2 108.3 mmHg (75.0-100.0); AaDO2 425.1 mmHg; COHb 0.3 % (0.5-1.5); MetHb 0.9 % (0.0-1.5); O2Hb 95.5 % (94.0-97.0); PEEP,BG 12 cm H2O; SITE, ABG Right Brachial; VENT MODE, BG AC / 80% O2; VT, ABG 600 mL
[2017-03-16] MEDS ORDERED: NOREPINEPHRINE 16 MG in IV D5W 500 ML IV PRN (09:30)
[2017-03-16] MEDS: ACETAMINOPHEN 325 MG TABLET PO PRN ×2 (09:43→17:00)
--- NOTE | 2017-03-16 11:00 | NUR ---
DR. RAMSEY AT BEDSIDE TO SPEAK TO FAMILY REGARDING CARDIAC CONDITION / ECHOCARDIOGRAM RESULT AND PLAN OF CARE. PATIENT TOO UNSTABLE FOR HEART VALVE REPLACEMENT.
--- NOTE | 2017-03-16 11:00 | NUR ---
PATIENT BP CONTINUE TO DROP. LEVOPHED DRIP STARTED PER PROTOCOL. VERSED DRIP STARTED. SCANTY URINE OUTPUT.
--- NOTE | 2017-03-16 11:25 | NUR ---
DR. NGUYEN FOR RENAL CONSULT. SPOKE TO FAMILY REGARDING POSSIBLE DIALYSIS. MD AWARE OF PATIENT ANURIC CONDITION.
--- NOTE | 2017-03-16 13:00 | NUR ---
PATIENT REMAINS TACHYPNEIC AT 36. ATTEMPTS TO TITRATE UP VERSED/FENTANYL DRIP TO DECREASED RR. NEOSYNEPHRINE UO TO 250 MCG/MIN. LEVOPHED TO 10 MCG/MIN. SBP REMAINS 80'S.
[2017-03-16 13:09] LABS: HEPATITIS Be AB Negative (Negative)
--- NOTE | 2017-03-16 15:00 | NUR ---
PATIENT MAX OUT ON LEVOPHED AT 40 MCG/MIN AND NEOSYNEPHRINE AT 300 MCG/MIN. DR. BARRAGAN MADE AWARE WITH ORDERS TO GOVE NS 500 ML BOLUS, START PATIENT ON VASOPRESSIN DRIP. PHARMACY MADE AWARE.
[2017-03-16] MEDS ORDERED: VANCOMYCIN 1 GM in IV D5W 250 ML IV SCH ×2 (15:30→16:00)
[2017-03-16] MEDS ORDERED: VASOPRESSIN INJ 50 UNIT in IV D5W 500 ML IV PRN (15:30)
--- NOTE | 2017-03-16 15:40 | NUR ---
VASOPRESSIN DRIP STARTED AT SHOCK DOSE. 0.04 UNITS / MIN. NS BOLUS 500 ML BOLUS INFUSED.
--- NOTE | 2017-03-16 15:41 | NUR ---
PER DR BARRAGAN PEEP LOWERED TO 10 Addendum: 03/16/17 at 1542 by FATOUMATA JOHNSON RT Amended: Links added.
--- NOTE | 2017-03-16 15:45 | NUR ---
DR. LORENZANA AT BEDSIDE. MD SPOKE TO FAMILY REGARDING RISK/COMPLICATIONS OF SURGICAL INTERVENTION AT THIS POINT. PATIENT ALSO VERY CRITICAL TO START DIALYSIS WITH PATIENT MAX OUT ON 3 PRESSORS TO SUPPORT BP.
--- NOTE | 2017-03-16 16:00 | NUR ---
REMAINS FEBRILE AT 102 ORALLY. TYLENOL 650 MGS VIA NGT. MAX OUT ON TRIPLE PRESSORS WITH SBP 90'S. ONGOING FAMILY INTERACTIONS/UPDATE WITH PATIENT CONDITION. REMAINS ANURIC. DR. LORENZANA SPOKE TO DR. NGUYEN . UNABLE TO PLACE DIALYSIS CATH DUE TO PATIENT CRITICAL CONDITION. UNABLE TO TURN PATIENT ATHIS TIME DUE TO UNSTABLE CONDITION. RESTRAINTS RELEASED/DISCONTINUED. NO PURPOSEFUL MOVEMENT ON ALL EXTREMITIES. UNABLE TO DO VACATION SEDATION -REMAINS TACHYNEIC AT 36/MIN. ST 120'S.
--- NOTE | 2017-03-16 17:30 | NUR ---
KENN GOOD FOR INFECTIOUS DISEASE SPEAKING TO FAMILY AT BEDSIDE .
[2017-03-16] MEDS: LEVOFLOXACIN 500 MG /D5W 100ML 500 MG in PREMIX 1 EA IV SCH (17:41)
--- NOTE | 2017-03-16 18:10 | NUR ---
PATIENT HEART RHYTHM NOTED TO BE AFIB-RATE 70'S. DR. RAMSEY NOTIFIED-AWAITING MD TO RESPOND.
--- NOTE | 2017-03-16 18:20 | NUR ---
PATIENT NOTED ON PEA. CODE BLUE CALLED. CPR INITIATED. SEE CODE BLUE SHEET.
--- NOTE | 2017-03-16 18:28 | NUR ---
RT CODE BLUE CALLED. UPON ARRIVAL COMPRESSIONS STARTED. NOC SHIFT TOOK OVER COMPRESSIONS TO GIVE RELIEF.
[2017-03-16] MEDS ORDERED: SODIUM BICARBONATE SYR 50 MEQ/50 ML DISP.SYRIN IV ONE (18:49)
[2017-03-16] MEDS ORDERED: EPINEPHRINE (1:10,000) SYRINGE 1 MG/10 ML DISP.SYRIN IVP ONE (18:49)
[2017-03-16] MEDS ORDERED: CALCIUM CHLORIDE 1,000 MG/10 ML DISP.SYRIN IV ONE (18:49)
[2017-03-16] MEDS ORDERED: DEXTROSE 50%-WATER 50 ML DISP.SYRIN IV ONE (18:49)
--- NOTE | 2017-03-16 19:35 | NUR ---
AUTOPSY DECLINED BY PATIENT MOTHER AND FATHER. [facility] CALLED. [facility] CALLED BY KATHRYN CHARGE NURSE.
--- NOTE | 2017-03-16 20:50 | NUR ---
ICU/RN-POST MORTEM DONE.TO AMY CURRAN PER PROTOCOL. TWO IDENTIFIERS DONE BY 2 RNS ELÍAS AND KRISH.
== END 2017-03-16 18:50 | disposition expired | DRG 871 ==
LOC: ER 16:31 → ICU 19:51
PROC: 5A1945Z Respiratory Ventilation, 24-96 Consecutive Hours (ICD-10-PCS; principal; 2017-03-14)
PROC: 05HM33Z Insertion of Infusion Device into Right Internal Jugular Vein, Percutaneous Approach (ICD-10-PCS; 2017-03-16)
PROC: 0JHD3XZ Insertion of Tunneled Vascular Access Device into Right Upper Arm Subcutaneous Tissue and Fascia, Percutaneous Approach (ICD-10-PCS; 2017-03-16)
PROC: 04HL33Z Insertion of Infusion Device into Left Femoral Artery, Percutaneous Approach (ICD-10-PCS; 2017-03-16)
PROC: B543ZZA Ultrasonography of Right Jugular Veins, Guidance (ICD-10-PCS; 2017-03-16)
PROC: 5A12012 Performance of Cardiac Output, Single, Manual (ICD-10-PCS; 2017-03-16)
PROC: 05H633Z Insertion of Infusion Device into Left Subclavian Vein, Percutaneous Approach (ICD-10-PCS; 2017-03-16)
DX: A41.02 Sepsis due to Methicillin resistant Staphylococcus aureus (principal); J96.01 Acute respiratory failure with hypoxia; I26.92 Saddle embolus of pulmonary artery without acute cor pulmonale; D65 Disseminated intravascular coagulation [defibrination syndrome]; I33.0 Acute and subacute infective endocarditis; E43 Unspecified severe protein-calorie malnutrition; I76 Septic arterial embolism; J69.0 Pneumonitis due to inhalation of food and vomit; K56.609 Unspecified intestinal obstruction, unspecified as to partial versus complete obstruction; D61.818 Other pancytopenia; J96.02 Acute respiratory failure with hypercapnia; N17.0 Acute kidney failure with tubular necrosis; R65.21 Severe sepsis with septic shock; G92 Toxic encephalopathy; K56.7 Ileus, unspecified; E87.1 Hypo-osmolality and hyponatremia; F11.23 Opioid dependence with withdrawal; F19.20 Other psychoactive substance dependence, uncomplicated; E87.2 Acidosis; E86.0 Dehydration; D50.9 Iron deficiency anemia, unspecified; E87.6 Hypokalemia; B95.62 Methicillin resistant Staphylococcus aureus infection as the cause of diseases classified elsewhere
CPT/HCPCS: 31720; 36415; 36569; 36600; 70450-TC; 71010-TC; 74000-TC; 80048-TC; 80053-TC; 80061-TC; 80076-TC; 80202-TC; 80305; 81000-TC; 82746; 82803-TC; 82962-TC; 83605-TC; 83690-TC; 83735-TC; 84100-TC; 84443-TC; 84484-TC; 85025-TC; 85610-TC; 85730-TC; 86707; 86803; 87040-TC; 87070-TC; 87081-TC; 87086-TC; 87340; 87350; 87400; 93307-TC; 94002-TC; 94003-TC; 94762-TC; A4216; A4606; C9113; J0171; J0330; J1650; J1956; J2060; J2250; J2370; J2405; J2543; J3010; J3370; J3490; J7030; J7040; J7050; J7060; Z7610